=== PATIENT | female | born 1990 | race African-American/Black ===

== ENCOUNTER 2018-08-19 18:10 | Emergency (ER) | payer SELFPAY ==
--- NOTE | 2018-08-19 18:21 | PDOC ---
Rapid Medical Evaluation Time Seen by Provider: 08/19/18 18:20 Medical Evaluation: 08/19/18 18:20 HPI: urinary urgency x2 days PE:no gross deficits ORDERS: UA, Cx, U PREG Discharge Disposition - Diagnosis Urinary urgency - Referrals - Patient Instructions - Post Discharge Activity
[2018-08-19 18:38] VITALS: BP 122/67; PULSE 75; TEMP 98.3; BMI 22.3
--- NOTE | 2018-08-19 19:54 | PDOC ---
History of Present Illness - General Chief Complaint: Urinary Problem Stated Complaint: BLADDER INFECTION Time Seen by Provider: 08/19/18 18:20 History Source: Patient Exam Limitations: No Limitations Past History - Travel Traveled outside of the country in the last 30 days: No Close contact w/someone who was outside of country & ill: No - Past Medical History Allergies/Adverse Reactions: Allergies Allergy/AdvReac Type Severity Reaction Status Date / Time No Known Allergies Allergy Verified 08/19/18 18:20 Home Medications: Ambulatory Orders Azo 1 tab PO ASDIR 08/19/18 Mometasone/Formoterol [Dulera 100 Mcg/5 Mcg Inhaler] 2 inh IH BID 08/19/18 Sulfamethoxazole/Trimethoprim [Bactrim Ds -] 1 tab PO BID #20 tablet 08/19/18 Asthma: Yes (hospitalization w/o intubation) COPD: No - Suicide/Smoking/Psychosocial Hx Smoking History: Never smoked Review of Systems - Review of Systems Able to Perform ROS?: Yes Comments:: 08/19/18 19:55 CONSTITUTIONAL: Absent: fever, chills, diaphoresis, generalized weakness, malaise, loss of appetite HEENT: Absent: rhinorrhea, nasal congestion, throat pain, throat swelling, difficulty swallowing, mouth swelling, ear pain, eye pain, visual Changes CARDIOVASCULAR: Absent: chest pain, loss of consciousness, palpitations, irregular heart rate, peripheral edema RESPIRATORY: Absent: cough, shortness of breath, dyspnea with exertion, orthopnea, wheezing, stridor, hemoptysis GASTROINTESTINAL: Absent: abdominal pain, abdominal distension, nausea, vomiting, diarrhea, constipation, melena, hematochezia GENITOURINARY: Present: dysuria, frequency, urgency Absent hesitancy, hematuria, flank pain, genital pain MUSCULOSKELETAL: Absent: myalgia, arthralgia, joint swelling SKIN: Absent: rash, itching, pallor HEMATOLOGIC/IMMUNOLOGIC: Absent: easy bleeding, easy bruising, lymphadenopathy, frequent infections ENDOCRINE: Absent: unexplained weight gain, unexplained weight loss, heat intolerance, cold intolerance NEUROLOGIC: Absent: headache, focal weakness or paresthesias, dizziness, unsteady gait, seizure, mental status changes, bladder or bowel incontinence PSYCHIATRIC: Absent: anxiety, depression, suicidal or homicidal ideation, hallucinations. Is the patient limited Uzbek proficient: No *Physical Exam - Vital Signs Last Vital Signs Temp Pulse Resp BP Pulse Ox 98.3 F 75 16 122/67 100 08/19/18 18:24 08/19/18 18:24 08/19/18 18:24 08/19/18 18:24 08/19/18 18:24 - Physical Exam Comments: 08/19/18 19:57 GENERAL: Well developed, well nourished. Awake and alert. No acute distress. HEENT: Normocephalic, atraumatic. PERRLA, EOMI. No conjunctival pallor. Sclera are non- icteric. Moist mucous membranes. Oropharynx is clear. NECK: Supple. Full ROM. No JVD. Carotid pulses 2+ and symmetric, without bruits. No thyromegaly. No lymphadenopathy. CARDIOVASCULAR: Regular rate and rhythm. No murmurs, rubs, or gallops. Distal pulses are 2+ and symmetric. PULMONARY: No evidence of respiratory distress. Lungs clear to auscultation bilaterally. No wheezing, rales or rhonchi. ABDOMINAL: Suprapubic discomfort. Soft. Non-distended. No rebound or guarding. No organomegaly. Normoactive bowel sounds. MUSCULOSKELETAL Normal range of motion at all joints. No bony deformities or tenderness. (+) R CVA tenderness. EXTREMITIES: No cyanosis. No clubbing. No edema. No calf tenderness. SKIN: Warm and dry. Normal capillary refill. No rashes. No jaundice. NEUROLOGICAL: Alert, awake, appropriate. Cranial nerves 2-12 intact. No deficits to light touch and temperature in face, upper extremities and lower extremities. No motor deficits in the in face, upper extremities and lower extremities. Normoreflexic in the upper and lower extremities. Normal speech. Toes are down- going bilaterally. Gait is normal without ataxia. PSYCHIATRIC: Cooperative. Good eye contact. Appropriate mood and affect. Medical Decision Making - Medical Decision Making 08/19/18 19:57 The patient is a 28-year-old female with past medical history of asthma, who presents to the ER for one and a half days of urinary frequency, urgency and dysuria. She is taking AZO at home for her symptoms. She states that she has had urinary tract infections in the past and this feels the same. Denies cramping, vaginal bleeding. She denies . Last menstrual cycle was 2 weeks ago. Denies fevers, chills, nausea, vomiting, diarrhea. A/P: UTI On exam patient with mild CVA tenderness on the right as well as suprapubic tenderness Most likely UTI may be early onset Tylenol. We'll treat with Bactrim twice a day for 10 days Discharge home with PCP follow-up. I discussed the physical exam findings, ancillary test results and final diagnoses with the patient. I answered all of the patient's questions. The patient was satisfied with the care received and felt comfortable with the discharge plan and treatment plan. The Patient agrees to follow up with the primary care physician/specialist within 24-72 hours. Return precautions were given. *DC/Admit/Observation/Transfer Diagnosis at time of Disposition: UTI (urinary tract infection) Qualifiers: Urinary tract infection type: acute cystitis Hematuria presence: without hematuria Qualified Code(s): N30.00 - Acute cystitis without hematuria - Discharge Dispostion Disposition: HOME Condition at time of disposition: Stable Decision to Admit order: No - Prescriptions Prescriptions: Sulfamethoxazole/Trimethoprim [Bactrim Ds -] 1 tab PO BID #20 tablet - Referrals Referrals: Liang Forde MD [Staff Physician] - - Patient Instructions Printed Discharge Instructions: DI for Urinary Tract Infection (UTI) Additional Instructions: You have a urinary tract infection. This caused by bacteria. Please drink plenty of fluids. Take your antibiotics as prescribed. Finish the entire dose even if you feel better. You may take Tylenol or Motrin as needed for pain. follow the dosing instructions on the bottle Please follow up with your primary care doctor this week. Return to the emergency department if you have fevers, chills, nausea, vomiting , back pain, or have any changes in your symptoms. - Post Discharge Activity Forms/Work/School Notes: Back to Work
[2018-08-19 20:04] LABS: HCG,QUALITATIVE URINE Negative
[2018-08-19 20:08] LABS: HYALINE CASTS 2 /lpf (0-8); PH,URINE 6.5 (5.0-8.0); URINE APPEARANCE CLOUDY; URINE BACTERIA 80.4 /hpf (NEGATIVE); URINE BILIRUBIN NEGATIVE (NEGATIVE); URINE COLOR DK YELLOW; URINE GLUCOSE (UA) NEGATIVE (NEGATIVE); URINE KETONE NEGATIVE (NEGATIVE); URINE LEUK ESTERASE 3+ (NEGATIVE); URINE NITRITE POSITIVE (NEGATIVE); URINE PROTEIN NEGATIVE (NEGATIVE); URINE RBC 2 /hpf (0-4); URINE UROBILINOGEN 0.2 mg/dL (0.2-1.0); URINE WBC 280 /hpf (0-5)
[2018-08-19] MEDS ORDERED: SULFAMETHOXAZOLE/TRIMETHOPRIM 800MG/160MG D.S. TABLET PO ONE (20:09)
[2018-08-19] MEDS ORDERED: SULFAMETHOXAZOLE/TRIMETHOPRIM 800MG/160MG D.S. TABLET ONE (20:10)
== END 2018-08-19 20:11 | disposition home or self-care (01) ==
LOC: JERFT 18:10
DX: N30.00 Acute cystitis without hematuria (principal)
CPT/HCPCS: 81003; 84703; 87086; 99282-25

== ENCOUNTER 2019-01-13 08:25 | Emergency (ER) | payer SELFPAY ==
[2019-01-13 08:35] VITALS: BP 125/73; PULSE 67; TEMP 97.6; BMI 25.2
[2019-01-13] MEDS ORDERED: KETOROLAC TROMETHAMINE 30 MG/1 ML VIAL IM ONE (08:49)
[2019-01-13] MEDS ORDERED: diazePAM 5 MG TABLET PO ONE (08:50)
[2019-01-13] MEDS ORDERED: KETOROLAC TROMETHAMINE 30 MG/1 ML VIAL ONE (08:55)
[2019-01-13] MEDS ORDERED: diazePAM 5 MG TABLET ONE (08:55)
--- NOTE | 2019-01-13 08:58 | PDOC ---
History of Present Illness - General Chief Complaint: Pain Stated Complaint: NECK PAIN/ PAIN BACK Time Seen by Provider: 01/13/19 08:36 History Source: Patient Exam Limitations: No Limitations - History of Present Illness Initial Comments: 01/13/19 08:51 28 year old female with medical history of asthma and no significant surgical history presents with pain on left side of neck radiating into left shoulder. Denies injury or heavy lifting. Patient reports waking up with stiff neck. Denies difficulty breathing or swallowing. Took ibuprofen with no relief of pain or discomfort. Patient with iud in place. 01/13/19 09:02 Occurred: reports: last week Severity: reports: mild Pain Location: reports: neck Method of Injury: Yes: unknown Modifying Factors: improves with: pain medication Loss of Consciousness: no loss of consciousness Associated Symptoms (Fall): denies symptoms Past History - Travel Traveled outside of the country in the last 30 days: No Close contact w/someone who was outside of country & ill: No - Past Medical History Allergies/Adverse Reactions: Allergies Allergy/AdvReac Type Severity Reaction Status Date / Time No Known Allergies Allergy Verified 01/13/19 08:27 Home Medications: Ambulatory Orders Azo 1 tab PO ASDIR 08/19/18 Mometasone/Formoterol [Dulera 100 Mcg/5 Mcg Inhaler] 2 inh IH BID 08/19/18 Sulfamethoxazole/Trimethoprim [Bactrim Ds -] 1 tab PO BID #20 tablet 08/19/18 Cyclobenzaprine HCl [Flexeril -] 5 mg PO HS #7 tablet 01/13/19 Naproxen [EC-Naprosyn] 500 mg PO BID #14 tablet. 01/13/19 Asthma: Yes (hospitalization w/o intubation) COPD: No - Immunization History Immunization Up to Date: Yes - Psycho Social/Smoking Cessation Hx Smoking History: Never smoked Information on smoking cessation initiated: No Hx Alcohol Use: No Drug/Substance Use Hx: No Trauma Specific PMHX - Complaint Specific PMHX Arthritis: No Back Injury: No Neck Injury: No Hx Sacro Iliac Joint Dysfunction: No Review of Systems - Review of Systems Able to Perform ROS?: Yes Is the patient limited Mexican proficient: No Constitutional: No: Chills, Fever, Malaise, Night Sweats, Weakness HEENTM: No: Double Vision, Cataracts, Ear Pain, Nose Congestion, Hearing Loss, Throat Pain, Throat Swelling, Mouth Pain Respiratory: No: Cough, Orthopnea, Shortness of Breath, Wheezing, Productive cough Cardiac (ROS): No: Edema, Lightheadedness, Palpitations, Syncope ABD/GI: No: Difficulty Swallowing, Nausea, Poor Appetite, Poor Fluid Intake, Rectal Bleeding, Vomiting, Indigestion, Abdominal cramping Musculoskeletal: Yes: Back Pain, Neck Pain. No: Muscle Pain, Muscle Weakness Integumentary: No: Bruising, Dryness, Erythema, Flushing Neurological: No: Numbness, Paresthesia, Tingling, Tremors *Physical Exam - Vital Signs Last Vital Signs Temp Pulse Resp BP Pulse Ox 97.6 F 67 17 125/73 99 01/13/19 08:27 01/13/19 08:27 01/13/19 08:27 01/13/19 08:27 01/13/19 08:27 - Physical Exam General Appearance: Yes: Nourished, Appropriately Dressed HEENT: positive: TMs Normal, Pharynx Normal Neck: positive: Supple. negative: Lymphadenopathy (R), Lymphadenopathy (L) Respiratory/Chest: positive: Lungs Clear, Normal Breath Sounds Cardiovascular: positive: Regular Rhythm, Regular Rate Female Pelvic Exam: negative: discharge, adnexal tenderness, uterus Gastrointestinal/Abdominal: negative: Increased Bowel Sounds, Guarding, Tenderness Rectal Exam: negative: decreased tone Musculoskeletal: negative: Decreased Range of Motion Extremity: positive: Normal Capillary Refill. negative: Coldness Integumentary: negative: Jaundice, Diaphoresis, Moist Neurologic: positive: Fully Oriented, Alert. negative: EOM Palsy, Sensory Deficit Medical Decision Making - Medical Decision Making 01/13/19 09:01 28 year old female with medical history of asthma and no significant surgical history presents with pain on left side of neck radiating into left shoulder. Denies injury or heavy lifting. Musculoskeletal Pain -toradol im and valium given rx: naproxen and flexeril referred to ortho as needed Discharge - Discharge Information Problems reviewed: Yes Clinical Impression/Diagnosis: Musculoskeletal pain Disposition: HOME - Admission No - Additional Discharge Information Prescriptions: Cyclobenzaprine HCl [Flexeril -] 5 mg PO HS #7 tablet Naproxen [EC-Naprosyn] 500 mg PO BID #14 tablet.dr - Follow up/Referral Referrals: Kirk Aldana MD [Staff Physician] - - Patient Discharge Instructions Additional Instructions: Please apply warm compress to neck for 20 minutes 3 to 4 times daily May follow up with ortho if symptoms persist Return for worsening symptoms - Post Discharge Activity Work/Back to School Note: Back to Work
== END 2019-01-13 09:54 | disposition home or self-care (01) ==
LOC: JER 08:25
PROC: 3E0233Z Introduction of Anti-inflammatory into Muscle, Percutaneous Approach (ICD-10-PCS; principal; 2019-01-13)
DX: M54.2 Cervicalgia (principal); M25.512 Pain in left shoulder; J45.909 Unspecified asthma, uncomplicated
CPT/HCPCS: 99282-25

== ENCOUNTER 2020-06-16 15:43 | Emergency (ER) | payer OTHER ==
[2020-06-16 15:50] VITALS: BP 132/88; PULSE 62; TEMP 97; BMI 27.1
[2020-06-16] MEDS ORDERED: POLYETHYLENE GLYCOL 3350 119 GM BTL PO ONE (16:19)
[2020-06-16] MEDS ORDERED: MAG HYDROX/AL HYDROX/SIMETH 30 ML UNIT-DOSE CUP PO ONE (16:19)
[2020-06-16] MEDS ORDERED: MAG HYDROX/AL HYDROX/SIMETH 30 ML UNIT-DOSE CUP ONE (16:32)
[2020-06-16 16:53] LABS: BASO % 0.7 % (0-2.0); EOS % 5.9 % (0-4.5); HEMATOCRIT 40.2 % (32.4-45.2); HEMOGLOBIN 13.2 GM/dL (10.7-15.3); MCH 27.5 pg (25.7-33.7); MCHC 32.9 g/dl (32.0-36.0); MEAN CELL VOLUME 83.6 fl (80-96); MEAN PLT VOLUME 7.9 fl (7.5-11.1); MONO % 4.7 % (3.8-10.2); NEUT % 54.7 % (42.8-82.8); PLATELET COUNT 313 K/MM3 (134-434); RBC 4.81 M/mm3 (3.60-5.2); RDW 14.3 % (11.6-15.6); WHITE BLOOD COUNT 5.3 K/mm3 (4.0-10.0)
[2020-06-16 17:12] LABS: ALBUMIN 3.9 g/dl (3.4-5.0); CALCIUM 9.1 mg/dL (8.5-10.1)
[2020-06-16 17:13] LABS: BLOOD UREA NITROGEN 5.6 mg/dL (7-18)
[2020-06-16 17:16] LABS: CREATININE 0.8 mg/dL (0.55-1.3)
[2020-06-16 17:17] LABS: BILIRUBIN,TOTAL 0.5 mg/dL (0.2-1); TOT PROT 7.4 g/dl (6.4-8.2)
[2020-06-16 17:26] LABS: EPI CELLS 35 /uL (0-25.1); HCG,QUALITATIVE URINE Negative; HYALINE CASTS 2 /uL (0-3.1); PH,URINE >= 9.0 (5.0-8.0); URINE APPEARANCE CLEAR; URINE BACTERIA 1537 /uL (0-1359); URINE BILIRUBIN NEGATIVE (NEGATIVE); URINE COLOR YELLOW; URINE GLUCOSE (UA) NEGATIVE (NEGATIVE); URINE KETONE NEGATIVE (NEGATIVE); URINE LEUK ESTERASE NEGATIVE (NEGATIVE); URINE NITRITE NEGATIVE (NEGATIVE); URINE PROTEIN 1+ (NEGATIVE); URINE RBC 12 /uL (0-23.9); URINE WBC 16 /uL (0-25.8)
== END 2020-06-16 19:07 | disposition home or self-care (01) ==
LOC: JER 15:43
DX: K59.00 Constipation, unspecified (principal)
CPT/HCPCS: 36415; 74019-TC-FY; 76705-TC; 80053; 81003; 83690; 84703; 85025; 87086; 99285-25

== ENCOUNTER 2020-11-01 16:36 | Emergency (ER) | payer OTHER ==
[2020-11-01 17:13] VITALS: BP 119/74; PULSE 67; TEMP 97.9; BMI 21.9
[2020-11-01] MEDS ORDERED: KETOROLAC TROMETHAMINE 30 MG/1 ML VIAL IM ONE (18:30)
[2020-11-01] MEDS ORDERED: KETOROLAC TROMETHAMINE 30 MG/1 ML VIAL ONE (18:31)
[2020-11-01 20:10] LABS: EPI CELLS 15 /uL (0-25.1); HYALINE CASTS 4 /uL (0-3.1); PH,URINE 6.5 (5.0-8.0); URINE APPEARANCE CLEAR; URINE BACTERIA 318 /uL (0-1359); URINE BILIRUBIN NEGATIVE (NEGATIVE); URINE COLOR YELLOW; URINE GLUCOSE (UA) NEGATIVE (NEGATIVE); URINE KETONE 2+ (NEGATIVE); URINE LEUK ESTERASE NEGATIVE (NEGATIVE); URINE NITRITE NEGATIVE (NEGATIVE); URINE PROTEIN NEGATIVE (NEGATIVE); URINE RBC 8 /uL (0-23.9); URINE UROBILINOGEN 0.2 mg/dL (0.2-1.0); URINE WBC 13 /uL (0-25.8)
[2020-11-01 20:31] LABS: HCG,QUALITATIVE URINE Negative
== END 2020-11-01 21:20 | disposition home or self-care (01) ==
LOC: JER 16:36
PROC: 3E0233Z Introduction of Anti-inflammatory into Muscle, Percutaneous Approach (ICD-10-PCS; principal; 2020-11-01)
DX: N94.6 Dysmenorrhea, unspecified (principal)
CPT/HCPCS: 76830-TC; 81003; 84703; 99284-25

== ENCOUNTER 2021-02-14 07:05 | Emergency (ER) | payer OTHER ==
[2021-02-14 07:08] VITALS: BP 104/74; PULSE 108; TEMP 97.7; BMI 25.6
[2021-02-14] MEDS ORDERED: DEXAMETHASONE LIQUID 0.5 MG/5 ML PO ONE (07:10)
[2021-02-14] MEDS ORDERED: DEXAMETHASONE SOD PHOSPHATE 10 MG/1 ML VIAL ONE (07:11)
[2021-02-14] MEDS: ALBUTEROL SO4 2.5/IPRATROPIUM 0.5 INH SOL 3 ML VIAL.NEB. NEB SCH ×3 (07:18→07:46)
== END 2021-02-14 08:45 | disposition home or self-care (01) ==
LOC: JERFT 07:05
PROC: 3E0F7GC Introduction of Other Therapeutic Substance into Respiratory Tract, Via Natural or Artificial Opening (ICD-10-PCS; principal; 2021-02-14)
DX: J45.21 Mild intermittent asthma with (acute) exacerbation (principal)
CPT/HCPCS: 71045-TC-FY; 87804; 99285-25; C9803; U0003; U0005

== ENCOUNTER 2022-01-05 16:05 | Emergency (ER) | payer BC, OTHER ==
[2022-01-05 16:46] VITALS: BP 119/75; PULSE 80; RESP 20; TEMP 98.2; BMI 25.9
[2022-01-05] MEDS ORDERED: LACTATED RINGERS SOLUTION 1000 ML INFUS.BAG IV ONE (19:16)
[2022-01-05] MEDS ORDERED: ACETAMINOPHEN 500 MG TABLET (FP) PO ONE (19:34)
[2022-01-05] MEDS ORDERED: ACETAMINOPHEN 500 MG TABLET (FP) ONE (19:35)
[2022-01-05 21:18] LABS: URINE APPEARANCE TURBID; URINE BILIRUBIN NEGATIVE (NEGATIVE); URINE COLOR YELLOW; URINE GLUCOSE (UA) NEGATIVE (NEGATIVE); URINE KETONE TRACE (NEGATIVE); URINE LEUK ESTERASE NEGATIVE (NEGATIVE); URINE NITRITE NEGATIVE (NEGATIVE); URINE PROTEIN TRACE (NEGATIVE); URINE UROBILINOGEN 0.2 mg/dL (0.2-1.0)
[2022-01-05 21:21] LABS: HCG,QUALITATIVE URINE Negative
[2022-01-05 22:10] LABS: BASO % 1.2 % (0-2.0); EOS % 13.3 % (0-4.5); HEMATOCRIT 40.3 % (32.4-45.2); HEMOGLOBIN 13.2 GM/dL (10.7-15.3); LYMPH % 47.7 % (8-40); MCH 26.8 pg (25.7-33.7); MCHC 32.8 g/dl (32.0-36.0); MEAN CELL VOLUME 81.6 fl (80-96); MEAN PLT VOLUME 8.5 fl (7.5-11.1); MONO % 7.7 % (3.8-10.2); NEUT % 30.1 % (42.8-82.8); PLATELET COUNT 286 10^3/uL (134-434); RBC 4.93 M/mm3 (3.60-5.2); RDW 14.1 % (11.6-15.6); WHITE BLOOD COUNT 3.9 K/mm3 (4.0-10.0)
[2022-01-05 22:11] LABS: CALCIUM 9.1 mg/dL (8.5-10.1)
[2022-01-05 22:12] LABS: ALBUMIN 4.1 g/dl (3.4-5.0); BLOOD UREA NITROGEN 7.5 mg/dL (7-18)
[2022-01-05 22:15] LABS: CREATININE 0.8 mg/dL (0.55-1.3)
[2022-01-05 22:17] LABS: BILIRUBIN,TOTAL 0.4 mg/dL (0.2-1); TOT PROT 7.8 g/dl (6.4-8.2)
== END 2022-01-05 23:54 | disposition home or self-care (01) ==
LOC: JER 16:05
DX: N93.9 Abnormal uterine and vaginal bleeding, unspecified (principal)
CPT/HCPCS: 76830-TC; 80053; 81003; 84703; 85025; 86850; 86900; 86901; 87086; 99284-25